=== PATIENT | female | born 1975 | race Two or more races ===

== ENCOUNTER 2025-05-18 12:24 | Emergency (ER) | payer OTHER ==
[2025-05-18 12:38] VITALS: RESP 18; TEMP 97.9; BMI 29.0
[2025-05-18 13:56] LABS: ABSOLUTE IMMATURE GRANULOCYTES 0.04 x10^3/uL (0.0-0.031); BASOPHILS # 0.09 x10^3/uL (0.01-0.08); EOSINOPHIL % 2.0 % (0.7-5.8); EOSINOPHILS # 0.22 x10^3/uL (0.04-0.36); MCHC 32.8 g/dl (32.2-35.5); MEAN CELL VOLUME 100.2 fl (79.4-94.8); MEAN PLT VOLUME 10.1 fl (9.4-12.3); MONOCYTE # 0.79 x10^3/uL (0.24-0.86); MONOCYTE % 7.2 % (4.7-12.5); RDW 15.1 % (12.2-17.1)
[2025-05-18 14:11] LABS: INR 0.95 (0.83-1.09); PROTHROMBIN TIME (PATIENT) 10.5 SEC (9.7-13.0)
[2025-05-18 14:14] LABS: ACTIVATED PTT 27.7 SECONDS (25.2-36.5)
[2025-05-18 14:16] LABS: GLUCOSE,RANDOM 88.0 mg/dL (74-106)
[2025-05-18 14:17] LABS: TOT PROT 7.4 g/dl (6.4-8.2)
[2025-05-18 14:18] LABS: CO2 29.0 mmol/L (21-32)
[2025-05-18 14:19] LABS: ALK PHOS 87.0 U/L (40-150)
[2025-05-18 14:22] LABS: CREATININE 0.88 mg/dL (0.55-1.3); SGOT/AST 58.0 U/L (5-34); SGPT/ALT 60.0 U/L (0-55)
[2025-05-18] MEDS ORDERED: ONDANSETRON 4 MG/2 ML VIAL ONE (14:30)
[2025-05-18] MEDS ORDERED: ACETAMINOPHEN INJECTION 100 ML ONE (14:30)
[2025-05-18] MEDS: LACTATED RINGERS SOLUTION 1000 ML INFUS.BAG IV ONE (14:36)
[2025-05-18] MEDS: ACETAMINOPHEN 1000 MG/100 ML BAG IVPB ONE (14:37)
[2025-05-18] MEDS: ONDANSETRON 4 MG/2 ML VIAL IVPUSH ONE (14:37)
[2025-05-18] MEDS ORDERED: KETOROLAC TROMETHAMINE 15 MG/ML VIAL ONE (15:42)
[2025-05-18] MEDS: KETOROLAC TROMETHAMINE 15 MG/ML VIAL IVPUSH ONE (15:46)
[2025-05-18] MEDS: SODIUM CHLORIDE 0.9% 500 ML INFUS.BAG IV ONE (15:46)
[2025-05-18 17:10] VITALS: BP 145/95; PULSE 70
== END 2025-05-18 17:20 | disposition home or self-care (01) ==
LOC: JER 12:24
PROC: 3E033NZ Introduction of Analgesics, Hypnotics, Sedatives into Peripheral Vein, Percutaneous Approach (ICD-10-PCS; principal; 2025-05-18)
PROC: 3E0333Z Introduction of Anti-inflammatory into Peripheral Vein, Percutaneous Approach (ICD-10-PCS; 2025-05-18)
PROC: 3E033GC Introduction of Other Therapeutic Substance into Peripheral Vein, Percutaneous Approach (ICD-10-PCS; 2025-05-18)
DX: M54.50 Low back pain, unspecified (principal); R20.2 Paresthesia of skin; R29.898 Other symptoms and signs involving the musculoskeletal system; R11.2 Nausea with vomiting, unspecified; R68.83 Chills (without fever)
CPT/HCPCS: 36415; 74177-TC; 76705-TC; 80053; 83690; 85025; 85610; 85730; 86850; 86900; 86901; 96374; 96375; 99285-25